=== PATIENT | female | born 1945 | race Caucasian/White ===

== ENCOUNTER 2020-02-28 20:57 | Inpatient (IN) | payer MEDICARE, MEDICAID ==
[~2020-02-28] VITALS: Ht 167.6 cm; Wt 86.5 kg
[~2020-02-28 20:57] MED LIST: AML5T PO; DONE10TA40 PO; FURO40TA4 PO; LEVO25TA6 PO; LORA-655 PO; METF-370 PO; PIO30T PO; POTA10TA51 PO; ZOLP12.569 PO
[2020-02-29 00:19] LABS: Basophils # (auto) 0 10 ^3/uL (0-0.2); Eosinophils # (auto) 0 10 ^3/uL (0-0.8); Hemoglobin 11.6 g/dL (12.2-16.2); Lymphocytes # (auto) 0.4 10 ^3/uL (0.4-5.4); Mean Corpuscular Volume 80.4 fL (80.0-100.0); Monocytes # (auto) 0.4 10 ^3/uL (0-1.3); Neutrophils # (auto) 3.8 10 ^3/uL (1.6-8.6); Neutrophils % (auto) 82.2 % (37.0-80.0); Nucleated Red Blood Cells % 0.2 %
[2020-02-29 00:22] LABS: Basophils % (auto) 0.1 % (0.0-2.0); Hematocrit 35.1 % (36.0-46.0); Lymphocytes % (auto) 8.4 % (10.0-50.0); Mean Corpuscular Hemoglobin 26.6 pg (28.0-32.0); Mean Corpuscular Hgb Conc. 33.1 g/dL (32.0-36.0); Monocytes % (auto) 9.3 % (0.0-12.0); Platelet Count (auto) 137 10^3/uL (140-450); Red Blood Cells 4.36 10^6/uL (4.0-5.20); White Blood Cell 4.6 10^3/uL (4.4-10.8)
[2020-02-29 00:27] LABS: Red Cell Distribution Width 20.8 % (11.8-14.3)
[2020-02-29 00:37] LABS: Albumin 1.8 g/dL (3.4-5.0); Calcium 8.2 mg/dL (8.5-10.1); INR 1.11 (0.9-1.15); Magnesium 1.7 mg/dL (1.6-2.6); Partial Thromboplastin Time 38.8 sec (23.0-31.2); Potassium 4.6 mmol/L (3.5-5.1)
[2020-02-29 00:43] LABS: Bilirubin, Total 1.2 mg/dL (0.2-1.0)
[2020-02-29] MEDS ORDERED: MORPHINE SULF INJ 2 MG/ML SYRINGE 1ML IV PRN (03:30)
[2020-02-29] MEDS ORDERED: HYDROcodone-ACET 5/325MG TAB PO PRN (03:30)
[2020-02-29] MEDS ORDERED: DOCUSATE SOD 100 MG CAP PO PRN (03:30)
[2020-02-29] MEDS ORDERED: DEXTROSE (50%) 50ML SYRG IV PRN (03:30)
[2020-02-29] MEDS ORDERED: ACETAMINOPHEN 500 MG TAB PO PRN (03:30)
[2020-02-29] MEDS ORDERED: ONDANSETRON HCL 4 MG/2 ML VIAL IV PRN (03:30)
[2020-02-29] MEDS ORDERED: NITROGLYCERIN 0.4 MG SL TAB SL PRN (03:30)
[2020-02-29] MEDS: DexAMETHasone SOD PHOS 10MG/1ML VIAL INJ IV SCH (04:15)
[2020-02-29] MEDS: DOXYCYCLINE 100MG/250ML 250 ML IV SCH ×2 (04:15→22:23)
[2020-02-29 06:03] LABS: Basophils # (auto) 0 10 ^3/uL (0-0.2); Basophils % (auto) 0.2 % (0.0-2.0); Eosinophils # (auto) 0 10 ^3/uL (0-0.8); Hemoglobin 10.9 g/dL (12.2-16.2); Lymphocytes # (auto) 0.4 10 ^3/uL (0.4-5.4); Monocytes # (auto) 0.3 10 ^3/uL (0-1.3); Nucleated Red Blood Cells % 0.1 %
[2020-02-29 06:14] LABS: Lymphocytes % (auto) 7.6 % (10.0-50.0); Mean Corpuscular Hemoglobin 26.6 pg (28.0-32.0); Mean Corpuscular Volume 80.5 fL (80.0-100.0); Monocytes % (auto) 7.2 % (0.0-12.0); Neutrophils # (auto) 4.1 10 ^3/uL (1.6-8.6); Platelet Count (auto) 123 10^3/uL (140-450); Red Blood Cells 4.09 10^6/uL (4.0-5.20); White Blood Cell 4.8 10^3/uL (4.4-10.8)
[2020-02-29 06:17] LABS: Red Cell Distribution Width 20.5 % (11.8-14.3)
[2020-02-29 06:20] LABS: Potassium 4.3 mmol/L (3.5-5.1)
[2020-02-29 06:31] LABS: Albumin 1.7 g/dL (3.4-5.0); BUN/Creatinine Ratio 35.8; Bilirubin, Total 1.2 mg/dL (0.2-1.0); Calcium 8.3 mg/dL (8.5-10.1); Magnesium 1.8 mg/dL (1.6-2.6); Total Protein 6.7 g/dL (6.4-8.2)
[2020-02-29] MEDS: InsuLIN REG 1unit/0.01ml Soln (100units/ml) SC SCH ×4 (07:00→22:28)
[2020-02-29] MEDS: ACCU-CHEK COMFORT CURVE STRIP VI SCH ×4 (07:00→22:23)
[2020-02-29] MEDS: BUDESONIDE (INHALATION) 180 MCG IH IN SCH ×2 (07:00→21:30)
[2020-02-29] MEDS: ALBUTEROL SULF HFA 90MCG INH 200DOSE IN PRN (08:30)
[2020-02-29] MEDS: CHOLECALCIFEROL (VITD3) 2,000 UNIT CAP PO SCH (10:00)
[2020-02-29] MEDS: PANTOPRAZOLE 40 MG/10 ML VIAL INJ IV SCH (10:00)
[2020-02-29] MEDS: ASCORBIC ACID 1,000 MG TAB PO SCH (10:00)
[2020-02-29] MEDS: ENOXAPARIN SOD 40 MG/0.4 ML SYRINGE SC SCH (10:00)
[2020-02-29] MEDS: ZINC SULFATE 220mg CAP or TAB PO SCH (10:00)
[2020-02-29] MEDS ORDERED: REMDESIVIR PER PHARMACY 0 ML IV SCH (10:30)
[2020-02-29] MEDS ORDERED: cefTRIAXone 1GM/50ML D5W 50 ML IV ONE (10:30)
[2020-02-29] MEDS ORDERED: REMDESIVIR 200 MG in NS 210ml LOADING DOSE ADULT IV ONE (15:00)
[2020-03-01] MEDS ORDERED: SOD CHL 0.45% 1,000 ML IV ONE (00:15)
[2020-03-01] MEDS: InsuLIN REG 1unit/0.01ml Soln (100units/ml) SC SCH ×4 (06:21→22:00)
[2020-03-01] MEDS: ACCU-CHEK COMFORT CURVE STRIP VI SCH ×4 (06:22→21:17)
[2020-03-01] MEDS: BUDESONIDE (INHALATION) 180 MCG IH IN SCH ×2 (08:25→18:24)
[2020-03-01] MEDS: ALBUTEROL SULF HFA 90MCG INH 200DOSE IN PRN ×2 (08:25→18:51)
[2020-03-01] MEDS: cefTRIAXone 1GM/50ML D5W 50 ML IV SCH (09:00)
[2020-03-01 09:45] LABS: Basophils # (auto) 0 10 ^3/uL (0-0.2); Basophils % (auto) 0.1 % (0.0-2.0); Eosinophils # (auto) 0 10 ^3/uL (0-0.8); Hematocrit 37.4 % (36.0-46.0); Hemoglobin 12.5 g/dL (12.2-16.2); Lymphocytes # (auto) 0.5 10 ^3/uL (0.4-5.4); Lymphocytes % (auto) 8.1 % (10.0-50.0); Mean Corpuscular Hemoglobin 26.9 pg (28.0-32.0); Mean Corpuscular Hgb Conc. 33.5 g/dL (32.0-36.0); Mean Corpuscular Volume 80.2 fL (80.0-100.0); Monocytes # (auto) 0.3 10 ^3/uL (0-1.3); Monocytes % (auto) 5.7 % (0.0-12.0); Neutrophils # (auto) 4.9 10 ^3/uL (1.6-8.6); Neutrophils % (auto) 86.1 % (37.0-80.0); Nucleated Red Blood Cells % 0.2 %; Platelet Count (auto) 138 10^3/uL (140-450); Red Blood Cells 4.66 10^6/uL (4.0-5.20); White Blood Cell 5.7 10^3/uL (4.4-10.8)
[2020-03-01 09:49] LABS: Red Cell Distribution Width 20.7 % (11.8-14.3)
[2020-03-01] MEDS: CHOLECALCIFEROL (VITD3) 2,000 UNIT CAP PO SCH (10:00)
[2020-03-01] MEDS: DexAMETHasone SOD PHOS 10MG/1ML VIAL INJ IV SCH (10:00)
[2020-03-01] MEDS: ASCORBIC ACID 1,000 MG TAB PO SCH (10:00)
[2020-03-01] MEDS: ZINC SULFATE 220mg CAP or TAB PO SCH (10:00)
[2020-03-01] MEDS: PANTOPRAZOLE 40 MG/10 ML VIAL INJ IV SCH (10:00)
[2020-03-01] MEDS: DOXYCYCLINE 100MG/250ML 250 ML IV SCH ×2 (10:00→20:40)
[2020-03-01] MEDS: ENOXAPARIN SOD 40 MG/0.4 ML SYRINGE SC SCH ×2 (10:00→22:00)
[2020-03-01 10:12] LABS: Albumin 1.8 g/dL (3.4-5.0); Calcium 8.7 mg/dL (8.5-10.1); Potassium 4.4 mmol/L (3.5-5.1)
[2020-03-01 10:23] LABS: BUN/Creatinine Ratio 48.3; Bilirubin, Total 1.1 mg/dL (0.2-1.0); Total Protein 7.3 g/dL (6.4-8.2)
[2020-03-01] MEDS: REMDESIVIR 100 MG in SODIUM CHL 0.9% 250 ML IV SCH (15:35)
[2020-03-01] MEDS: FUROSEMIDE 40 MG/4 ML VIAL IV SCH (18:09)
[2020-03-02 05:17] LABS: Basophils # (auto) 0 10 ^3/uL (0-0.2); Basophils % (auto) 0.1 % (0.0-2.0); Eosinophils # (auto) 0 10 ^3/uL (0-0.8); Hemoglobin 11.7 g/dL (12.2-16.2); Lymphocytes # (auto) 0.4 10 ^3/uL (0.4-5.4); Mean Corpuscular Hemoglobin 26.5 pg (28.0-32.0); Mean Corpuscular Hgb Conc. 32.7 g/dL (32.0-36.0); Neutrophils # (auto) 5.8 10 ^3/uL (1.6-8.6); Platelet Count (auto) 124 10^3/uL (140-450)
[2020-03-02 05:24] LABS: Hematocrit 35.6 % (36.0-46.0); Lymphocytes % (auto) 5.6 % (10.0-50.0); Mean Corpuscular Volume 80.9 fL (80.0-100.0); Monocytes # (auto) 0.4 10 ^3/uL (0-1.3); Monocytes % (auto) 6.3 % (0.0-12.0); Nucleated Red Blood Cells % 0.3 %; Red Cell Distribution Width 21.1 % (11.8-14.3); White Blood Cell 6.6 10^3/uL (4.4-10.8)
[2020-03-02 05:31] LABS: Calcium 8.5 mg/dL (8.5-10.1); Potassium 4.2 mmol/L (3.5-5.1)
[2020-03-02] MEDS: ACCU-CHEK COMFORT CURVE STRIP VI SCH ×4 (05:40→22:52)
[2020-03-02] MEDS: FUROSEMIDE 40 MG/4 ML VIAL IV SCH ×2 (05:40→17:47)
[2020-03-02 05:52] LABS: Albumin 1.6 g/dL (3.4-5.0); BUN/Creatinine Ratio 59.6; Total Protein 6.6 g/dL (6.4-8.2)
[2020-03-02] MEDS: BUDESONIDE (INHALATION) 180 MCG IH IN SCH ×2 (06:25→21:45)
[2020-03-02] MEDS: ALBUTEROL SULF HFA 90MCG INH 200DOSE IN PRN ×2 (06:25→21:45)
[2020-03-02] MEDS: InsuLIN REG 1unit/0.01ml Soln (100units/ml) SC SCH ×4 (06:38→22:53)
--- NOTE | 2020-03-02 07:56 | NUR ---
attempted to recieve report from earth [employer] faculty member nurse unavailable will call back
[2020-03-02 08:00] VITALS: BP 99/51
--- NOTE | 2020-03-02 08:05 | NUR ---
recieved report from carroll lopez
--- NOTE | 2020-03-02 08:34 | NUR ---
Telemetry admit from ER SOLANIL admitted to Telemetry unit after SBAR received. Patient oriented to MARY GRACE VENTURA, primary RN, unit, room, bed, and unit policies regarding patient care and visiting hours. Patient now on continuous telemetry monitoring, tele box # [id number] and telemetry reading on arrival to unit is . Patient placed on bedside oxygen, weighed by bedscale and encouraged to call if they need something. All questions and concerns addressed, patient verbalized understanding. Note:
[2020-03-02] MEDS: cefTRIAXone 1GM/50ML D5W 50 ML IV SCH (09:00)
--- NOTE | 2020-03-02 09:34 | NUR ---
CALLED MD HAN REGARDING LOW GAUGE IV ACCESS PT UNABLE TO OBTAIN CONSENT PER CT WILL BE DONE OUTPATIENT
[2020-03-02] MEDS: ENOXAPARIN SOD 40 MG/0.4 ML SYRINGE SC SCH ×2 (10:00→22:51)
[2020-03-02] MEDS: ASCORBIC ACID 1,000 MG TAB PO SCH (10:00)
[2020-03-02] MEDS: PANTOPRAZOLE 40 MG/10 ML VIAL INJ IV SCH (10:00)
[2020-03-02] MEDS: DexAMETHasone SOD PHOS 10MG/1ML VIAL INJ IV SCH (10:00)
[2020-03-02] MEDS: DOXYCYCLINE 100MG/250ML 250 ML IV SCH ×2 (10:00→22:51)
[2020-03-02] MEDS: ZINC SULFATE 220mg CAP or TAB PO SCH (10:00)
[2020-03-02] MEDS: CHOLECALCIFEROL (VITD3) 2,000 UNIT CAP PO SCH (10:00)
[2020-03-02 13:22] VITALS: BP 99/51
[2020-03-02] MEDS: REMDESIVIR 100 MG in SODIUM CHL 0.9% 250 ML IV SCH (15:07)
--- NOTE | 2020-03-02 15:26 | NUR ---
REMDESIVIR BP111/53 P106 POX 89% R 20
[2020-03-02 15:38] VITALS: BP 111/53
[2020-03-02 17:00] VITALS: BP 125/53
--- NOTE | 2020-03-02 17:00 | NUR ---
RENDESVIR VITALS BP 125/53 P69 R18 POX89% T97.4
--- NOTE | 2020-03-02 19:45 | NUR ---
Opening Shift Note Assumed care of patient, awake and alert. No S/S of distress/SOB or pain. Bedbound, cooperative to care. Instructed on POC and to call for assist PRN, patient verbalized understanding. Turned patient to her side, bed in lowest and locked position, bed alarm on, call light within reach, will continue to monitor for changes Q1hr and PRN.
[2020-03-02 20:00] VITALS: BP 109/54
[2020-03-02 21:00] VITALS: BP 109/54
[2020-03-03] VITALS (7 sets, daily range): BP systolic 115–132; BP diastolic 52–66
--- NOTE | 2020-03-03 05:00 | NUR ---
Pictures taken on sacral area, applied Z-guard and covered with optifoam. Wound consult placed for skin issues and low Amish score of 13. Turned to her side and every 2 hours, offload heels with pillows, patient tolerated well
[2020-03-03] MEDS: FUROSEMIDE 40 MG/4 ML VIAL IV SCH ×2 (06:48→18:00)
[2020-03-03] MEDS: ACCU-CHEK COMFORT CURVE STRIP VI SCH ×4 (06:48→21:51)
[2020-03-03] MEDS: InsuLIN REG 1unit/0.01ml Soln (100units/ml) SC SCH ×4 (06:49→22:25)
--- NOTE | 2020-03-03 08:00 | NUR ---
ASSESSMENT NOTE PT IS ALERT TO SELF AND HER NEEDS ONLY, RESTING IN BED COMFORTABLY, GENERALIS WEAKNESS NOTED, 15 L OXYGEN NRMASK, LARGE HARD ABDOMEN NOTED DUE TO ASCITES, LEFT DROP FOOT NOTED, BILATERAL UPPER AND LOWER EXTREMITIES WITH EDEMA 2+ TO 3+, BOTH LOWER EXTREMITIES ARE ELEVATED ON PILLOWS, REDNESS NOTED ON BOTH HEELS, SACRUM PRESSURE NOTED, COVERED WITH OPTIFOAM, SANTA CATHETER TO GRAVITY, PT IS TOTAL DEPENDANT ON HER CARE, REPOSITION EVERY 2 HOURS, HEAD OF BED ELEVATED FOR ASPIRATION PRECAUTIONS, ECCHYMOSIS NOTED ON BOTH UPPER ARMS, PAIN 0/10, NO DISTRESS NOTED, BED ALARM ACTIVATED, CALL LIGHT WITHIN REACH, PT IS UNABLE TO USE IT AT THIS TIME, DUE TO HER WEAKNESS, CHECK ON PT AT ALL TIMES
--- NOTE | 2020-03-03 09:00 | NUR ---
RADIOLOGIST CALLED, TO HOLD LOVENOX, PT WILL HAVE A PARACENTESIS
[2020-03-03] MEDS: ENOXAPARIN SOD 40 MG/0.4 ML SYRINGE SC SCH ×2 (10:00→21:51)
[2020-03-03] MEDS: BUDESONIDE (INHALATION) 180 MCG IH IN SCH ×2 (10:00→23:44)
--- NOTE | 2020-03-03 10:00 | NUR ---
A CONSENT WAS TAKEN OVER THE PHONE FROM PATIENT'S DAUGHTER, AGREE FOR PARACENTESIS, TRUNG Gutierrez WAS THE SECOND WITNESS
[2020-03-03] MEDS: DexAMETHasone SOD PHOS 10MG/1ML VIAL INJ IV SCH (10:25)
[2020-03-03] MEDS: cefTRIAXone 1GM/50ML D5W 50 ML IV SCH (10:25)
[2020-03-03] MEDS: ZINC SULFATE 220mg CAP or TAB PO SCH (10:26)
[2020-03-03] MEDS: PANTOPRAZOLE 40 MG/10 ML VIAL INJ IV SCH (10:26)
[2020-03-03] MEDS: CHOLECALCIFEROL (VITD3) 2,000 UNIT CAP PO SCH (10:29)
[2020-03-03] MEDS: ASCORBIC ACID 1,000 MG TAB PO SCH (10:29)
--- NOTE | 2020-03-03 10:45 | NUR ---
WOUND CARE NOTE: IN TO SEE PATIENT AT THIS TIME PER WOUND CARE CONSULT REQUEST. PATIENT ADMITTED TO REPLACED BY [facility] WITH DIAGNOSIS OF COVID 19, VIRAL PNA. SHE IS IN COVID UNIT, UNDER AIRBORNE ISOLATION. PATIENT HAS CURRENT KEN SCORE OF 11. SHE RECENTLY WAS TRANSFERRED TO [facility] FROM [place]. PATIENT NTOED UPON ASSESSMENT TO HAVE MULTIPLE INTACT MAROON DTI'S TO SACRUM. SKIN IS INTACT, MAROON, PINK IN COLOR. WOUND PHOTOS TAKEN UPON ASSESSMENT, AND AGAIN AT THIS TIME FOR REFERENCE. ZGUARD, OPTIFOAM GENTLE SACRAL DRESSING APPLIED. PATIENT RESTING ON GEL MATTRESS, LEG BREAKER TO ATTACH ISOFLEX AIR PUMP TO BED. PATIENT SHOULD BE PROVIDED WITH SIDE TO SIDE POSITIONING, AVOIDING SUPINE, EXCEPT FOR MEALS/WORKING WITH PHYSICAL THERAPY, OR RESPIRATORY THERAPY. SKIN/WOUND CARE PLAN IMPLEMENTED. RECOMMEND: FREQUENT SIDE TO SIDE POSITIONING, Q 2 HOURS, PRN CONDITION PERMITS, WITH PRESSURE REDISTRIBUTION USING PILLOWS/WEDGES, BID/PRN APPLICATION ZGUARD, OPTIFOAM GENTLE SACRAL DRESSING, GEL MATTRESS/AIR PUMP, DIETARY CONSULT FOR PRESSURE INJURY, SKIN/WOUND CARE PLAN, CONTINUED MONITORING BY WOUND CARE TEAM. Addendum: 03/03/20 at 1534 by Svetlana Yarbrough RN Amended: Links added.
--- NOTE | 2020-03-03 11:00 | NUR ---
WOUND NURSE AT BED SIDE WITH A FULL SKIN ASSESSMENT, PICTURES ARE TAKEN WITH RENEE FOR THE SACRUM PRESSURE, A NEE OPTIFOAM APPLIED, ALSO, A GUY BOOT APPLIED FOR THE BOTH HEELS PRESSURE/ RED SKIN, ADVICE THE PT NEED TO BE REPOSITION SIDE TO SIDE EVERY 2 HOURS, AND SHE WILL GOING TO ORDER AIR MATTRESS PUMP FOR PATIENT BED
--- NOTE | 2020-03-03 11:05 | NUR ---
DR RAMIREZ / GI AT BED SIDE FOLLOWING UP ON PT
--- NOTE | 2020-03-03 11:20 | NUR ---
DR BORDEN AT BED SIDE FOR FOLLOWING UP AND OBTAINING ALL PATIENT'S UPDATE
[2020-03-03] MEDS: DOXYCYCLINE 100MG/250ML 250 ML IV SCH ×2 (11:33→21:51)
--- NOTE | 2020-03-03 13:06 | NUR ---
RADIOLOGY / TERRIE YUN SAID THAT SHE WILL BE HERE SHORTLY FOR THE PARACENTESIS
[2020-03-03] MEDS: ALBUTEROL SULF HFA 90MCG INH 200DOSE IN PRN ×2 (14:27→23:43)
--- NOTE | 2020-03-03 14:49 | NUR ---
Nutrition Consult/Assessment Notes please see attached link for complete assessment Est Energy needs IBW 59 [id number] kcals (25-30 kcal/kgIBW), Est Protein needs: 59-70 gms/day (1.0-1.2 gm/kgIBW). Will continue to monitor and reassess prn. Will reassess per dry body wt Addendum: 03/03/20 at [address] Amended: Links added.
--- NOTE | 2020-03-03 14:55 | NUR ---
PARACENTESIS TERRIE THE SPIKE MAKER AT BED SIDE WITH US ABDOMEN TO LOCATE FLUIDS POCKETS, SHE CALLD THE RADIOLOGIST , WAITING FOR HIM
--- NOTE | 2020-03-03 15:00 | NUR ---
DR PRASAD BED SIDE WITH PARACENTESIS, PT AWARE, TOLERATED THE PROCEDURE WELL, CONTINUE TAKING TH EVS EVERY 15 MIN
--- NOTE | 2020-03-03 15:30 | NUR ---
PARACENTESIS PROCEDURE IS DONE WITH 1600 OUTPUT, VS STABLE
[2020-03-03] MEDS: REMDESIVIR 100 MG in SODIUM CHL 0.9% 250 ML IV SCH (16:24)
--- NOTE | 2020-03-03 16:24 | NUR ---
REMEDISIVIR INITIATED, PRE SET OF VS TAKEN
--- NOTE | 2020-03-03 17:24 | NUR ---
PT TOLERATED REMEDISIVIR WELL, NO DISTRESS NOTED, CONTINUE MONITORING
--- NOTE | 2020-03-03 18:43 | NUR ---
DINNER NURSE ELISABET PEDRAZA AT BED SIDE FEEDING PT
--- NOTE | 2020-03-03 18:44 | NUR ---
PT CONTINUE STABLE, CONTINUE MONITORING
--- NOTE | 2020-03-03 19:40 | NUR ---
Opening Shift Note Assumed care of patient, oriented to self. No S/S of distress/SOB or pain. Bedbound, cooperative to care. Instructed on POC and to call for assist PRN, patient verbalized understanding. Turned patient to her side, bed in lowest and locked position, bed alarm on, call light within reach, will continue to monitor for changes Q1hr and PRN
--- NOTE | 2020-03-03 19:55 | NUR ---
Spoke to daughter Jaylan and updated on patient's status
[2020-03-04] VITALS (7 sets, daily range): BP systolic 115–129; BP diastolic 58–66
[2020-03-04] MEDS: ACCU-CHEK COMFORT CURVE STRIP VI SCH ×4 (05:45→21:51)
[2020-03-04] MEDS: InsuLIN REG 1unit/0.01ml Soln (100units/ml) SC SCH ×4 (05:46→22:00)
[2020-03-04] MEDS: FUROSEMIDE 40 MG/4 ML VIAL IV SCH ×2 (05:47→19:03)
[2020-03-04 07:03] LABS: Basophils # (auto) 0 10 ^3/uL (0-0.2); Eosinophils # (auto) 0 10 ^3/uL (0-0.8); Hemoglobin 12.2 g/dL (12.2-16.2); Lymphocytes # (auto) 0.3 10 ^3/uL (0.4-5.4); Monocytes # (auto) 0.3 10 ^3/uL (0-1.3)
[2020-03-04 07:06] LABS: Basophils % (auto) 0.6 % (0.0-2.0); Eosinophils % (auto) 0.1 % (0.0-7.0); Hematocrit 37.1 % (36.0-46.0); Lymphocytes % (auto) 4.5 % (10.0-50.0); Mean Corpuscular Hemoglobin 26.3 pg (28.0-32.0); Mean Corpuscular Hgb Conc. 32.9 g/dL (32.0-36.0); Monocytes % (auto) 4.3 % (0.0-12.0); Neutrophils # (auto) 6.3 10 ^3/uL (1.6-8.6); Neutrophils % (auto) 90.5 % (37.0-80.0); Nucleated Red Blood Cells % 0.1 %; Platelet Count (auto) 131 10^3/uL (140-450); Red Blood Cells 4.64 10^6/uL (4.0-5.20); Red Cell Distribution Width 20.7 % (11.8-14.3); White Blood Cell 6.9 10^3/uL (4.4-10.8)
--- NOTE | 2020-03-04 08:00 | NUR ---
Opening Shift Note Received report from shift superintendent RN Sada, Assumed care of patient, awake and alert. Patient on 15L Nonrebreather, No S/S of distress/SOB or pain. Oxygen saturation 100%. Patient instructed on plan to have her moved positions [id number] in bed to prevent ulcers and skin damage. Bed in lowest position, call light within reach. Instructed on POC and to call for assist PRN, will continue to monitor for changes Q1hr and PRN.
[2020-03-04] MEDS: ALBUTEROL SULF HFA 90MCG INH 200DOSE IN PRN ×2 (08:07→20:34)
[2020-03-04] MEDS: BUDESONIDE (INHALATION) 180 MCG IH IN SCH ×2 (08:07→20:33)
[2020-03-04] MEDS: ZINC SULFATE 220mg CAP or TAB PO SCH (09:52)
[2020-03-04] MEDS: cefTRIAXone 1GM/50ML D5W 50 ML IV SCH (09:52)
[2020-03-04] MEDS: DexAMETHasone SOD PHOS 10MG/1ML VIAL INJ IV SCH (09:52)
[2020-03-04] MEDS: ASCORBIC ACID 1,000 MG TAB PO SCH (09:52)
[2020-03-04] MEDS: ENOXAPARIN SOD 40 MG/0.4 ML SYRINGE SC SCH ×2 (09:53→21:34)
[2020-03-04] MEDS: CHOLECALCIFEROL (VITD3) 2,000 UNIT CAP PO SCH (09:53)
[2020-03-04] MEDS: PANTOPRAZOLE 40 MG/10 ML VIAL INJ IV SCH (09:53)
[2020-03-04] MEDS: DOXYCYCLINE 100MG/250ML 250 ML IV SCH ×2 (10:00→21:34)
--- NOTE | 2020-03-04 12:20 | NUR ---
MD Rizvi at bedside.
--- NOTE | 2020-03-04 15:24 | NUR ---
REMDESEVIR INFUSION STARTED BLOOD PRESSURE 111/53 HEART RATE 76 OXYGEN SATURATION 92% 15L NONREBREATHER
[2020-03-04] MEDS: REMDESIVIR 100 MG in SODIUM CHL 0.9% 250 ML IV SCH (15:25)
--- NOTE | 2020-03-04 15:40 | NUR ---
REMDESIVIR 15 MINUTE VITAL SIGNS BLOOD PRESSURE 127/58 HEART RATE 82 OXYGEN SATURATION 94% 15L NONREBREATHER
--- NOTE | 2020-03-04 15:45 | NUR ---
PATIENTS REMDESEVIR PAUSED, PATIENTS 2 IV'S INFILTRATED AND REMOVED, CATHETER INTACT. ATTEMPTED TIMES [address] IV TO CONTINUE REMDESIVIR INFUSION.
--- NOTE | 2020-03-04 16:30 | NUR ---
IV PLACED RIGHT FOREARM 22 GAUGE WITH CLEAN TECHNIQUE, REMDESIVIR INFUSING.
--- NOTE | 2020-03-04 18:18 | NUR ---
POST REMDESIVIR VITAL SIGNS BLOOD PRESSURE 126/58 HEART RATE 71 OXYGEN SATURATION ON 15L NONREBREATHER 92%
--- NOTE | 2020-03-04 19:31 | NUR ---
INHOUSE COVID SWAB OBTAINED, LABELED AND WALKED TO LAB. PATIENT TOLERATED WELL.
--- NOTE | 2020-03-04 20:15 | NUR ---
END REMDESIVIR VITAL SIGNS BLOOD PRESSURE 123/66 HEART RATE 52 OXYGEN SATURATION ON 15L NONREBREATHER 92%
[2020-03-05 05:00] VITALS: BP 120/51
[2020-03-05] MEDS: FUROSEMIDE 40 MG/4 ML VIAL IV SCH ×2 (05:52→17:47)
[2020-03-05] MEDS: InsuLIN REG 1unit/0.01ml Soln (100units/ml) SC SCH ×4 (06:46→21:56)
[2020-03-05] MEDS: ACCU-CHEK COMFORT CURVE STRIP VI SCH ×4 (06:46→21:48)
[2020-03-05 07:06] LABS: Hematocrit 36.6 % (36.0-46.0); Hemoglobin 11.8 g/dL (12.2-16.2); Mean Corpuscular Hemoglobin 25.5 pg (28.0-32.0); Mean Corpuscular Hgb Conc. 32.2 g/dL (32.0-36.0); Mean Corpuscular Volume 79.3 fL (80.0-100.0); Platelet Count (auto) 142 10^3/uL (140-450); Red Blood Cells 4.61 10^6/uL (4.0-5.20); White Blood Cell 7.8 10^3/uL (4.4-10.8)
[2020-03-05 07:23] LABS: Potassium 3.4 mmol/L (3.5-5.1)
[2020-03-05 07:25] LABS: Red Cell Distribution Width 20.8 % (11.8-14.3)
[2020-03-05 07:26] LABS: Basophils % (manual) 0 (0.0-2.0); Blast Cells 0; Eosinophils % (manual) 0 (0-7); Metamyelocytes % 0; Myelocytes % 0; Promyelocytes % 0; Reactive Lymphocytes 0
[2020-03-05 07:34] LABS: Albumin 1.6 g/dL (3.4-5.0); BUN/Creatinine Ratio 52.7; Bilirubin, Total 1.1 mg/dL (0.2-1.0); Calcium 8.3 mg/dL (8.5-10.1); Magnesium 1.8 mg/dL (1.6-2.6); Total Protein 6.5 g/dL (6.4-8.2)
--- NOTE | 2020-03-05 07:50 | NUR ---
Opening Shift Note Received report from shift manager RN Gris, Assumed care of patient. Patient asleep, No S/S of distress/SOB. Patient on 15L nonrebreather oxygen saturation 95%. Bed in lowest position, call light within reach, will continue to monitor for changes Q1hr and PRN.
[2020-03-05 08:11] LABS: Band Neutrophils % (manual) 1; Lymphocytes % (manual) 5 (10.0-50.0); Monocytes % (manual) 7 (0-12)
[2020-03-05 09:00] VITALS: BP 122/69
[2020-03-05] MEDS: CHOLECALCIFEROL (VITD3) 2,000 UNIT CAP PO SCH (10:00)
[2020-03-05] MEDS: BUDESONIDE (INHALATION) 180 MCG IH IN SCH ×2 (10:00→22:00)
[2020-03-05] MEDS: ZINC SULFATE 220mg CAP or TAB PO SCH (10:00)
[2020-03-05] MEDS: ENOXAPARIN SOD 40 MG/0.4 ML SYRINGE SC SCH ×2 (10:00→21:45)
[2020-03-05] MEDS: ASCORBIC ACID 1,000 MG TAB PO SCH (10:00)
[2020-03-05] MEDS: cefTRIAXone 1GM/50ML D5W 50 ML IV SCH (10:22)
[2020-03-05] MEDS: DexAMETHasone SOD PHOS 10MG/1ML VIAL INJ IV SCH (10:23)
[2020-03-05] MEDS: PANTOPRAZOLE 40 MG/10 ML VIAL INJ IV SCH (10:23)
--- NOTE | 2020-03-05 11:45 | NUR ---
MD HAN AT BEDSIDE PATIENT UPDATED ON POC. ORDERS RECEIVED FOR SOCIAL SERVICE CONSULT TO [facility]. Addendum: 03/05/20 at 1344 by CAITLYN GOMEZ RN RN MD HAN SIGNED DNR FORM, FORM IN CHART.
--- NOTE | 2020-03-05 12:15 | NUR ---
INSULIN HELD PATIENTS BLOOD SUGAR 179. INSULIN HELD, PATIENT REFUSES TO EAT OR DRINK. PATIENT EDUCATED ON NEED TO EAT, BUT CONTINUOS TO REFUSE. WILL CONTINUE TO MONITOR.
--- NOTE | 2020-03-05 12:30 | NUR ---
ATTEMPTED TO CALL DAUGHTER EMILY AT NUMBER TIMES 2 CALLS TO CLARIFY THAT SHE STILL WANTS MOTHER DNR. NO ANSWER AND NO OPTION TO LEAVE VOICEMAIL. WILL ATTEMPT AGAIN.
[2020-03-05 13:00] VITALS: BP 106/48
--- NOTE | 2020-03-05 15:07 | NUR ---
Assessment Patient is a 74-year-old female who is on a high flow oxygen. Assessment was completed with patient daughter Jaylan . Prior to admission patient reside at [facility] terminal manager and functioned with assistance from the staff. Advised Jaylan there is a social service consult for hospice evaluation and return to [facility]. Advised Jaylan Cherry with [facility] they do not work with hospice and patient can return to the facility with Palliative Care and under 10 l/min oxygen. Advised Jaylan there is hospices who can accommodate patient needs. Jaylan is in agreement and would like me to contact a hospice who can accommodate patient needs. Informed Jaylan order will be faxed to [facility] and will have Maya with [facility] follow up with her for any arrangements. Informed Jaylan she has the right to participate in all discharge planning. Jaylan is patient POA. Jaylan verbalize understanding and agrees to discharge plan. Faxed clinical information to [facility]. Per Maya with [facility] patient has been accepted and they found placement at [facility] and they can accept tomorrow 03/06/20. Informed MD, Dr. Negrete. Per MD he will discharge patient on Sunday. Transportation will be arranged by [facility]. Addendum: 03/05/20 at 1524 by MEGHNA WIGGINS Amended: Links added.
--- NOTE | 2020-03-05 15:41 | NUR ---
Per MD Negrete, hold discharge until tomorrow.
[2020-03-05 17:00] VITALS: BP 108/54
--- NOTE | 2020-03-05 18:31 | NUR ---
Spoke to daughter Jaylan, password confirmed. Per daughter [facility] is not taking hosp[facility] patients and on 15L nonrebreather. Per daughter wants to speak to MD Negrete, work # [phone] cellphone # [phone]
--- NOTE | 2020-03-05 19:30 | NUR ---
Opening Shift Note Assumed care of patient, awake and alert. No S/S of distress/SOB or pain noted. Instructed on POC and to call for assist PRN. Bed is in lowest locked position with bed rails up x2 and call light is within reach of the patient. Bed alarm is armed. TO turn q2 hours and PRN.
[2020-03-05 22:00] VITALS: BP 99/74
[2020-03-05] MEDS: ALBUTEROL SULF HFA 90MCG INH 200DOSE IN PRN (23:26)
[2020-03-06 05:00] VITALS: BP 126/62
--- NOTE | 2020-03-06 05:00 | NUR ---
Optifoam: New optifoam placed to sacrum. Sacrum cleaned and barrier cream applied. Patient tolerated well.
[2020-03-06] MEDS: FUROSEMIDE 40 MG/4 ML VIAL IV SCH ×2 (05:50→18:02)
[2020-03-06] MEDS: ACCU-CHEK COMFORT CURVE STRIP VI SCH ×3 (06:19→17:06)
[2020-03-06] MEDS: InsuLIN REG 1unit/0.01ml Soln (100units/ml) SC SCH ×3 (06:26→17:07)
--- NOTE | 2020-03-06 08:00 | NUR ---
OPENING SHIFT NOTE ASSUMED CARE OF PATIENT AWAKE AND ALERT X2. PATIENT PLACED ON 15L NONREBREATHER WITH A SATURATION OF 90%. PATIENT TOLERATING NRB WELL. [place] TO GRAVITY DRAINING CLEAR, YELLOW URINE. BED IS IN LOWEST, LOCKED POSITION WITH SIDE RAILS UP X2, CALL LIGHT WITHIN REACH, AND BED ALARM ON FOR SAFETY. WILL CONTINUE TO MONITOR Q1H AND PRN.
[2020-03-06 09:00] VITALS: BP 104/55
[2020-03-06] MEDS: ASCORBIC ACID 1,000 MG TAB PO SCH (09:47)
[2020-03-06] MEDS: ZINC SULFATE 220mg CAP or TAB PO SCH (09:47)
[2020-03-06] MEDS: DexAMETHasone SOD PHOS 10MG/1ML VIAL INJ IV SCH (09:47)
[2020-03-06] MEDS: PANTOPRAZOLE 40 MG/10 ML VIAL INJ IV SCH (09:47)
[2020-03-06] MEDS: CHOLECALCIFEROL (VITD3) 2,000 UNIT CAP PO SCH (09:47)
[2020-03-06] MEDS: cefTRIAXone 1GM/50ML D5W 50 ML IV SCH (09:47)
[2020-03-06] MEDS: ENOXAPARIN SOD 40 MG/0.4 ML SYRINGE SC SCH (09:47)
[2020-03-06] MEDS: BUDESONIDE (INHALATION) 180 MCG IH IN SCH (10:00)
--- NOTE | 2020-03-06 10:31 | NUR ---
[facility] RECEIVED A CALL FROM EDWARDO AT [facility] REQUESTING REPORT ON PATIENT. PER EDWARDO PATIENT WILL BE DISCHARGED TODAY AND [facility] WILL BE ARRANGING TRANSPORT. AWAITING DISCHARGE ORDER.
--- NOTE | 2020-03-06 12:28 | NUR ---
[facility] RECEIVED CALL FROM EDWARDO AT [facility] REGARDING PICK-UP TIME OF 1800. WILL CONTINUE CARE.
[2020-03-06 13:00] VITALS: BP 124/44
[2020-03-06] MEDS: ALBUTEROL SULF HFA 90MCG INH 200DOSE IN PRN (15:16)
[2020-03-06 17:00] VITALS: BP 130/49
== END 2020-03-06 18:30 | disposition hospice, inpatient (51) | DRG 177 ==
LOC: EDBD 20:57 → ER 21:00 → OVERFLOW 21:01 → TELE-WESTW 03-02 08:20
PROVIDERS: ADMIT Nurse Practitioner Family; ATTEND Internal Medicine
PROC: XW033E5 Introduction of Remdesivir Anti-infective into Peripheral Vein, Percutaneous Approach, New Technology Group 5 (ICD-10-PCS; 2020-02-29)
PROC: 0W9G3ZZ Drainage of Peritoneal Cavity, Percutaneous Approach (ICD-10-PCS; principal; 2020-03-03)
DX: U07.1 COVID-19 (principal); J12.89 Other viral pneumonia; J96.01 Acute respiratory failure with hypoxia; I50.33 Acute on chronic diastolic (congestive) heart failure; J98.11 Atelectasis; E11.65 Type 2 diabetes mellitus with hyperglycemia; E86.0 Dehydration; E66.01 Morbid (severe) obesity due to excess calories; F03.90 Unspecified dementia, unspecified severity, without behavioral disturbance, psychotic disturbance, mood disturbance, and anxiety; I11.0 Hypertensive heart disease with heart failure; K70.31 Alcoholic cirrhosis of liver with ascites; Z66 Do not resuscitate; Z79.4 Long term (current) use of insulin; Z68.30 Body mass index [BMI] 30.0-30.9, adult
CPT/HCPCS: 10022; 36415; 71045; 76705; 76942; 80053; 80061; 82105; 82140; 82962; 83036; 83615; 83735; 83880; 84443; 84484; 85007; 85025; 85027; 85379; 85610; 85730; 86141; 87081; 87426; 93005; 94640; C9113; G0378; J0696; J1100; J1815; J3490